=== PATIENT | male | born 1945 | race Caucasian/White ===

== ENCOUNTER → 2016-05-12 | Outpatient (CLI) | payer BC ==
[~2016-05-12] MED LIST: AMLODIPINE BESY10 MG PO; ASPIRIN ADULT L81 M3 PO; CELEXA 20MG20 MG/TA1 PO; ENALAPRIL20 MG; FINASTERIDE5 M1 PO; GOOD SENSE OMEP20 MG PO; LANTUS SOLOS100 U/ML; METFORMIN HYD1000 MG PO; NORCO 325 MG-51 TAB PO; NOVOLOG FLEX100 U/ML; SIMVASTATIN40 M1 PO
== END ==
LOC: LAB 08:22
DX: E11.9 Type 2 diabetes mellitus without complications (principal); I10 Essential (primary) hypertension; R80.9 Proteinuria, unspecified

== ENCOUNTER → 2016-08-16 | Outpatient (CLI) | payer BC ==
[2015-08-23 19:49] VITALS: BP 145/88
== END ==
LOC: LAB 08:14
DX: E11.9 Type 2 diabetes mellitus without complications (principal); E78.5 Hyperlipidemia, unspecified

== ENCOUNTER → 2016-11-15 | Outpatient (CLI) | payer BC ==
[2015-08-23 19:49] VITALS: BP 145/88
== END ==
LOC: LAB 10:01
DX: E11.9 Type 2 diabetes mellitus without complications (principal); E78.2 Mixed hyperlipidemia; R80.9 Proteinuria, unspecified; I10 Essential (primary) hypertension

== ENCOUNTER → 2017-02-15 | Outpatient (CLI) | payer BC ==
[2015-08-23 19:49] VITALS: BP 145/88
[2017-02-15 10:16] LABS: ALBUMIN 4.2 g/dL (3.5-5.0); DIRECT BILIRUBIN 0.3 mg/dL (0.0-0.4); TOTAL BILIRUBIN 0.7 mg/dL (0.2-1.3); TOTAL PROTEIN 7.1 g/dL (6.3-8.2)
== END ==
LOC: LAB 09:09
PROVIDERS: Nurse Practitioner Family
DX: E11.9 Type 2 diabetes mellitus without complications (principal); E78.2 Mixed hyperlipidemia

== ENCOUNTER 2017-03-24 09:45 | Emergency (ER) | payer MEDICARE, BC ==
[~2017-03-24] VITALS: Ht 188 cm; Wt 113.6 kg
[2017-03-24] MEDS ORDERED: HYGROTON 2525 MG/TAB PO (10:10)
[2017-03-24 10:43] LABS: HEMATOCRIT 46.2 % (42.0-52.0); HEMOGLOBIN 15.1 g/dL (13.5-18.0); MEAN CELL VOLUME 90 fl (78-100); MEAN CORPUSCULAR HEMOGLOBIN 30 pg (27-31); MEAN CORPUSCULAR HGB CONC 33 g/dL (33-37); PLATELET COUNT 261 K/mm3 (130-400); RED BLOOD COUNT 5.11 M/mm3 (4.20-5.60); RED CELL DISTRIBUTION WIDTH 13.6 % (11.5-14.5); WHITE BLOOD COUNT 10.8 K/mm3 (4.8-10.8)
[2017-03-24 10:51] LABS: ALBUMIN 4.2 g/dL (3.5-5.0); BUN/CREATININE RATIO 25.6 (6.0-26.0); CALCIUM 9.2 mg/dL (8.4-10.2); POTASSIUM 4.4 mmol/L (3.6-5.0); TOTAL BILIRUBIN 0.8 mg/dL (0.2-1.3); TOTAL PROTEIN 7.2 g/dL (6.3-8.2)
[2017-03-24 10:53] LABS: LYMPHOCYTE 15 % (20-51); MONOCYTE 13 % (3-10); NEUTROPHILS 70 % (42-75)
[2017-03-24 11:50] LABS: URINE APPEARANCE CLEAR; URINE BILIRUBIN NEGATIVE (NEGATIVE); URINE BLOOD NEGATIVE (NEGATIVE); URINE COLOR YELLOW; URINE GLUCOSE NEGATIVE (NEGATIVE); URINE KETONE NEGATIVE (NEGATIVE); URINE LEUKOCYTE ESTERASE NEGATIVE (NEGATIVE); URINE MUCUS PRESENT (NOT PRESENT); URINE NITRATE NEGATIVE (NEGATIVE); URINE PROTEIN(semi-quant) 2+ mg/dL (NEGATIVE); URINE UROBILINOGEN NORMAL (NORMAL); URINE WBC 0-1 /hpf (0-3)
[2017-03-24] MEDS ORDERED: CYCLOBENZ5 MG PO (12:06)
[2017-03-24 12:16] VITALS: BP 197/88
== END 2017-03-24 12:17 | disposition home or self-care (01) ==
LOC: ED 09:45
PROVIDERS: Physician Assistant
DX: M62.838 Other muscle spasm (principal); I10 Essential (primary) hypertension; E11.9 Type 2 diabetes mellitus without complications; Z88.0 Allergy status to penicillin; Z79.4 Long term (current) use of insulin; R80.9 Proteinuria, unspecified; W01.10XA Fall on same level from slipping, tripping and stumbling with subsequent striking against unspecified object, initial encounter; Z91.81 History of falling; Y92.008 Other place in unspecified non-institutional (private) residence as the place of occurrence of the external cause
CPT/HCPCS: L0150

== ENCOUNTER → 2017-03-28 | Day surgery (SDC) | payer BC ==
[2017-03-24 12:16] VITALS: BP 197/88
[~2017-03-28] MED LIST changes: +CYCLOBENZ5 MG PO; +HYGROTON 2525 MG/TAB PO
== END ==
LOC: MSO 09:09
DX: R19.5 Other fecal abnormalities (principal); D12.0 Benign neoplasm of cecum; E11.9 Type 2 diabetes mellitus without complications; Z79.4 Long term (current) use of insulin; I10 Essential (primary) hypertension; Z87.891 Personal history of nicotine dependence
CPT/HCPCS: 00810; J2704; J7030

== ENCOUNTER → 2017-05-17 | Outpatient (CLI) | payer BC ==
[2017-05-17 11:05] LABS: EOS # 0.2 (0.04-0.40); EOS % 2.6 % (0.0-4.0); HEMOGLOBIN 15.4 g/dL (13.5-18.0); LYMPH# 2.5 (1.50-4.00); MEAN CELL VOLUME 89 fl (78-100); MEAN CORPUSCULAR HEMOGLOBIN 29 pg (27-31); MEAN CORPUSCULAR HGB CONC 32 g/dL (33-37); MEAN PLATELET VOLUME 9.9 fl (7.4-10.4); MONO # 0.7 (0.20-0.80); PLATELET COUNT 273 K/mm3 (130-400); RED CELL DISTRIBUTION WIDTH 13.8 % (11.5-14.5); WHITE BLOOD COUNT 6.5 K/mm3 (4.8-10.8)
[2017-05-17 11:20] LABS: BUN/CREATININE RATIO 23.4 (6.0-26.0); CALCIUM 9.2 mg/dL (8.4-10.2); POTASSIUM 5.1 mmol/L (3.6-5.0)
== END ==
LOC: LAB 10:42
PROVIDERS: Internal Medicine
DX: R80.9 Proteinuria, unspecified (principal); I10 Essential (primary) hypertension; E11.9 Type 2 diabetes mellitus without complications

== ENCOUNTER → 2017-08-23 | Outpatient (CLI) | payer BC ==
[2017-08-23 08:38] LABS: BUN/CREATININE RATIO 28.6 (6.0-26.0); CALCIUM 9.4 mg/dL (8.4-10.2); POTASSIUM 4.9 mmol/L (3.6-5.0)
[2017-08-23 08:43] LABS: BASO # 0.1 (0.02-0.10); EOS # 0.3 (0.04-0.40); EOS % 2.9 % (0.0-4.0); HEMATOCRIT 45.1 % (42.0-52.0); HEMOGLOBIN 14.7 g/dL (13.5-18.0); MEAN CELL VOLUME 91 fl (78-100); MEAN CORPUSCULAR HEMOGLOBIN 30 pg (27-31); MEAN CORPUSCULAR HGB CONC 33 g/dL (33-37); MEAN PLATELET VOLUME 10.4 fl (7.4-10.4); MONO # 0.7 (0.20-0.80); NEU # 4.7 (1.40-6.50); PLATELET COUNT 275 K/mm3 (130-400); RED BLOOD COUNT 4.98 M/mm3 (4.20-5.60); RED CELL DISTRIBUTION WIDTH 14.2 % (11.5-14.5); WHITE BLOOD COUNT 8.7 K/mm3 (4.8-10.8)
== END ==
LOC: LAB 08:07
PROVIDERS: Nurse Practitioner Family
DX: N18.2 Chronic kidney disease, stage 2 (mild) (principal); I10 Essential (primary) hypertension; E11.9 Type 2 diabetes mellitus without complications; Z88.0 Allergy status to penicillin

== ENCOUNTER → 2017-08-25 | Outpatient (CLI) | payer MEDICARE ==
[2017-08-25 12:21] LABS: PH-URINE 5.5 (5.0 - 8.0); URINE APPEARANCE CLEAR; URINE COLOR YELLOW; URINE PROTEIN(semi-quant) 3+ mg/dL (NEGATIVE)
[2017-08-25 12:22] LABS: URINE BILIRUBIN NEGATIVE (NEGATIVE); URINE BLOOD TRACE (NEGATIVE); URINE GLUCOSE NEGATIVE (NEGATIVE); URINE KETONE NEGATIVE (NEGATIVE); URINE LEUKOCYTE ESTERASE NEGATIVE (NEGATIVE); URINE NITRATE NEGATIVE (NEGATIVE); URINE UROBILINOGEN NORMAL (NORMAL)
== END ==
LOC: LAB 11:30
PROVIDERS: Nurse Practitioner Family
DX: N41.0 Acute prostatitis (principal); Z88.0 Allergy status to penicillin

== ENCOUNTER → 2017-09-05 | Outpatient (CLI) | payer MEDICARE | LOC: RAD 08:48 | DX: N20.0 Calculus of kidney (principal); N28.1 Cyst of kidney, acquired | CPT/HCPCS: Q9967 ==

== ENCOUNTER 2017-11-18 16:42 | Emergency (ER) | payer MEDICARE ==
[~2017-11-18] VITALS: Ht 188 cm; Wt 116.5 kg
[2017-11-18 17:26] LABS: BASO # 0.1 (0.02-0.10); EOS # 0.4 (0.04-0.40); EOS % 3.7 % (0.0-4.0); HEMATOCRIT 43.4 % (42.0-52.0); HEMOGLOBIN 13.7 g/dL (13.5-18.0); MEAN CELL VOLUME 91 fl (78-100); MEAN CORPUSCULAR HEMOGLOBIN 29 pg (27-31); MEAN CORPUSCULAR HGB CONC 32 g/dL (33-37); MEAN PLATELET VOLUME 10.2 fl (7.4-10.4); NEU # 5.1 (1.40-6.50); PLATELET COUNT 431 K/mm3 (130-400); RED BLOOD COUNT 4.77 M/mm3 (4.20-5.60); RED CELL DISTRIBUTION WIDTH 14.2 % (11.5-14.5); WHITE BLOOD COUNT 9.6 K/mm3 (4.8-10.8)
[2017-11-18 17:28] LABS: ALBUMIN 4.4 g/dL (3.5-5.0); BUN/CREATININE RATIO 29.9 (6.0-26.0); CALCIUM 9.5 mg/dL (8.4-10.2); POTASSIUM 4.8 mmol/L (3.6-5.0); TOTAL BILIRUBIN 0.3 mg/dL (0.2-1.3); TOTAL PROTEIN 7.8 g/dL (6.3-8.2)
[2017-11-18 17:50] LABS: PARTIAL THROMBOPLASTIN TIME 23.7 SECONDS (21.0-32.0); PROTHROMBIN TIME 9.4 SECONDS (9.0-12.0)
[2017-11-18 19:08] VITALS: BP 166/113
== END 2017-11-18 18:43 | disposition short-term general hospital (02) ==
LOC: ED 16:42
PROVIDERS: Physician Assistant
DX: I21.3 ST elevation (STEMI) myocardial infarction of unspecified site (principal); E11.9 Type 2 diabetes mellitus without complications; Z79.4 Long term (current) use of insulin; I10 Essential (primary) hypertension; E78.5 Hyperlipidemia, unspecified; K21.9 Gastro-esophageal reflux disease without esophagitis; Z79.82 Long term (current) use of aspirin; Z79.899 Other long term (current) drug therapy; N40.0 Benign prostatic hyperplasia without lower urinary tract symptoms
CPT/HCPCS: J1644; J1815; J3101

== ENCOUNTER → 2017-11-18 | Outpatient (CLI) | payer MEDICARE | LOC: CARDREHAB 14:25 | DX: I20.9 Angina pectoris, unspecified (principal); I10 Essential (primary) hypertension; E11.9 Type 2 diabetes mellitus without complications ==

== ENCOUNTER 2017-12-19 15:15 | Outpatient (RCR) | payer MEDICARE ==
[2017-12-16 16:15] VITALS: BP 138/50
[~2017-12-19 15:15] MED LIST changes: +AMIODARONE200 MG PO; +ATORVASTATIN CA80 MG PO; -ENALAPRIL20 MG; +ENALAPRIL20 MG PO; +FUROSEMIDE40 MG PO; -LANTUS SOLOS100 U/ML; +LEVEMIR FLEX100 U/ML SQ; +METOPROLOL SUC100 M1 PO; -NOVOLOG FLEX100 U/ML; +NOVOLOG FLEX100 U/ML SQ; +OXYCODONE PO; +POTASSIUM CHLO10 ME5 PO
== END 2018-03-19 | disposition home or self-care (01) ==
LOC: CARDREHAB
DX: Z48.812 Encounter for surgical aftercare following surgery on the circulatory system (principal); Z95.1 Presence of aortocoronary bypass graft; I21.19 ST elevation (STEMI) myocardial infarction involving other coronary artery of inferior wall

== ENCOUNTER 2018-01-04 14:13 | Outpatient (RCR) | payer MEDICARE ==
[2017-12-16 16:15] VITALS: BP 138/50
[2017-12-19 16:00] VITALS: BP 131/80
[2017-12-21 16:06] VITALS: BP 147/71
[2017-12-23 15:45] VITALS: BP 128/69
[2017-12-26 15:55] VITALS: BP 149/81
[2017-12-28 15:34] VITALS: BP 139/77
[2017-12-30 16:14] VITALS: BP 117/60
[2018-01-02 16:01] VITALS: BP 117/74
[~2018-01-04] VITALS: Ht 188 cm; Wt 111.4 kg
[2018-01-04 15:00] VITALS: BP 127/63
== END 2018-01-04 20:22 | disposition home or self-care (01) ==
LOC: AMSURD 14:13
DX: T81.30XA Disruption of wound, unspecified, initial encounter (principal); M79.89 Other specified soft tissue disorders; Z48.00 Encounter for change or removal of nonsurgical wound dressing; N18.9 Chronic kidney disease, unspecified; D63.1 Anemia in chronic kidney disease; Z95.1 Presence of aortocoronary bypass graft; Z98.890 Other specified postprocedural states

== ENCOUNTER → 2018-01-24 | Outpatient (CLI) | payer MEDICARE ==
[2018-01-04 15:00] VITALS: BP 127/63
[2018-01-24 10:27] LABS: BASO # 0.1 (0.02-0.10); EOS # 0.3 (0.04-0.40); EOS % 3.8 % (0.0-4.0); HEMATOCRIT 40.5 % (42.0-52.0); HEMOGLOBIN 12.5 g/dL (13.5-18.0); LYMPH# 2.4 (1.50-4.00); MEAN CELL VOLUME 90 fl (78-100); MEAN CORPUSCULAR HEMOGLOBIN 28 pg (27-31); MEAN CORPUSCULAR HGB CONC 31 g/dL (33-37); MONO # 1.1 (0.20-0.80); NEU # 5.1 (1.40-6.50); PLATELET COUNT 314 K/mm3 (130-400); RED CELL DISTRIBUTION WIDTH 14.9 % (11.5-14.5)
[2018-01-24 10:31] LABS: CALCIUM 9.1 mg/dL (8.4-10.2); POTASSIUM 4.5 mmol/L (3.6-5.0)
== END ==
LOC: LAB 10:03
PROVIDERS: Internal Medicine
DX: N18.2 Chronic kidney disease, stage 2 (mild) (principal); R80.8 Other proteinuria

== ENCOUNTER → 2018-02-08 | Outpatient (CLI) | payer MEDICARE ==
[2018-02-08 10:29] LABS: BASO # 0.1 (0.02-0.10); EOS # 0.2 (0.04-0.40); EOS % 2.7 % (0.0-4.0); HEMATOCRIT 45.4 % (42.0-52.0); HEMOGLOBIN 13.9 g/dL (13.5-18.0); LYMPH# 2.1 (1.50-4.00); MEAN CELL VOLUME 89 fl (78-100); MEAN CORPUSCULAR HEMOGLOBIN 27 pg (27-31); MEAN CORPUSCULAR HGB CONC 31 g/dL (33-37); MONO # 0.8 (0.20-0.80); NEU # 4.5 (1.40-6.50); PLATELET COUNT 290 K/mm3 (130-400); RED BLOOD COUNT 5.13 M/mm3 (4.20-5.60); RED CELL DISTRIBUTION WIDTH 15.1 % (11.5-14.5); WHITE BLOOD COUNT 7.8 K/mm3 (4.8-10.8)
[2018-02-08 10:39] LABS: ALBUMIN 4.2 g/dL (3.5-5.0); CALCIUM 9.8 mg/dL (8.4-10.2); POTASSIUM 4.3 mmol/L (3.6-5.0); TOTAL BILIRUBIN 0.4 mg/dL (0.2-1.3); TOTAL PROTEIN 7.1 g/dL (6.3-8.2)
== END ==
LOC: LAB 10:03
PROVIDERS: Family Medicine
DX: I12.9 Hypertensive chronic kidney disease with stage 1 through stage 4 chronic kidney disease, or unspecified chronic kidney disease (principal); E11.22 Type 2 diabetes mellitus with diabetic chronic kidney disease; N18.2 Chronic kidney disease, stage 2 (mild); E11.21 Type 2 diabetes mellitus with diabetic nephropathy; E78.2 Mixed hyperlipidemia

== ENCOUNTER 2018-03-20 10:00 | Outpatient (RCR) | payer MEDICARE | END 2018-03-20 14:00 | disposition home or self-care (01) | LOC: CARDREHAB 10:00 | DX: Z48.812 Encounter for surgical aftercare following surgery on the circulatory system (principal); Z95.1 Presence of aortocoronary bypass graft; I25.2 Old myocardial infarction ==

== ENCOUNTER → 2018-05-03 | Outpatient (CLI) | payer MEDICARE | LOC: LAB 09:17 | DX: E11.9 Type 2 diabetes mellitus without complications (principal) ==

== ENCOUNTER → 2018-07-24 | Outpatient (CLI) | payer MEDICARE ==
[2018-07-24 14:34] LABS: CALCIUM 9.6 mg/dL (8.4-10.2); POTASSIUM 4.7 mmol/L (3.6-5.0)
[2018-07-24 23:40] LABS: HEMOGLOBIN 14.7 g/dL (13.5-18.0)
== END ==
LOC: LAB 08:24
PROVIDERS: Family Medicine
DX: E11.22 Type 2 diabetes mellitus with diabetic chronic kidney disease (principal); I12.9 Hypertensive chronic kidney disease with stage 1 through stage 4 chronic kidney disease, or unspecified chronic kidney disease; N18.2 Chronic kidney disease, stage 2 (mild)

== ENCOUNTER → 2018-08-22 | Outpatient (CLI) | payer MEDICARE | LOC: LAB 08-21 15:57 | DX: R19.7 Diarrhea, unspecified (principal) ==

== ENCOUNTER → 2018-08-24 | Outpatient (CLI) | payer MEDICARE | LOC: LAB 07:41 | DX: R19.7 Diarrhea, unspecified (principal); M54.5 Low back pain; G89.29 Other chronic pain; I25.10 Atherosclerotic heart disease of native coronary artery without angina pectoris ==

== ENCOUNTER → 2018-11-06 | Outpatient (CLI) | payer MEDICARE ==
[~2018-11-06] VITALS: Ht 188 cm; Wt 111.4 kg
[2018-11-06 17:52] VITALS: BP 128/89
== END ==
LOC: ED 17:28 → EDSTATUS 17:32 → AMSURD 17:33
DX: E11.9 Type 2 diabetes mellitus without complications (principal); Z79.4 Long term (current) use of insulin
CPT/HCPCS: J1815

== ENCOUNTER → 2019-02-01 | Outpatient (CLI) | payer MEDICARE ==
[2018-11-06 17:52] VITALS: BP 128/89
[2019-02-01 08:42] LABS: HEMATOCRIT 45.9 % (42.0-52.0); MEAN PLATELET VOLUME 10.5 fl (7.4-10.4); RED BLOOD COUNT 5.11 M/mm3 (4.20-5.60); RED CELL DISTRIBUTION WIDTH 13.3 % (11.5-14.5); WHITE BLOOD COUNT 7.6 K/mm3 (4.8-10.8)
[2019-02-01 08:59] LABS: POTASSIUM 4.6 mmol/L (3.5-5.1)
[2019-02-01 09:00] LABS: CALCIUM 9.2 mg/dL (8.3-10.5)
== END ==
LOC: LAB 08:27
PROVIDERS: Internal Medicine Nephrology
DX: I12.9 Hypertensive chronic kidney disease with stage 1 through stage 4 chronic kidney disease, or unspecified chronic kidney disease (principal); N18.2 Chronic kidney disease, stage 2 (mild); E11.22 Type 2 diabetes mellitus with diabetic chronic kidney disease

== ENCOUNTER → 2019-03-06 | Outpatient (CLI) | payer MEDICARE ==
[2018-11-06 17:52] VITALS: BP 128/89
[2019-03-06 10:51] LABS: BASO # 0.1 (0.02-0.10); EOS # 0.3 (0.04-0.40); EOS % 2.9 % (0.0-4.0); HEMATOCRIT 48.9 % (42.0-52.0); HEMOGLOBIN 15.9 g/dL (13.5-18.0); LYMPH# 3.1 (1.50-4.00); MEAN CELL VOLUME 88 fl (78-100); MEAN CORPUSCULAR HEMOGLOBIN 29 pg (27-31); MEAN CORPUSCULAR HGB CONC 33 g/dL (33-37); MEAN PLATELET VOLUME 10.6 fl (7.4-10.4); MONO # 0.9 (0.20-0.80); NEU # 4.4 (1.40-6.50); PLATELET COUNT 272 K/mm3 (130-400); RED BLOOD COUNT 5.55 M/mm3 (4.20-5.60); RED CELL DISTRIBUTION WIDTH 13.2 % (11.5-14.5); WHITE BLOOD COUNT 8.7 K/mm3 (4.8-10.8)
[2019-03-06 11:00] LABS: ALBUMIN 4.1 g/dL (3.4-4.8); POTASSIUM 4.5 mmol/L (3.5-5.1)
[2019-03-06 11:02] LABS: TOTAL PROTEIN 7.2 g/dL (6.2-8.1)
[2019-03-06 11:04] LABS: TOTAL BILIRUBIN 0.6 mg/dL (0.2-1.2)
== END ==
LOC: LAB 10:37
PROVIDERS: Family Medicine
DX: I10 Essential (primary) hypertension (principal); E11.9 Type 2 diabetes mellitus without complications; E78.2 Mixed hyperlipidemia

== ENCOUNTER → 2019-06-01 | Outpatient (CLI) | payer MEDICARE ==
[2018-11-06 17:52] VITALS: BP 128/89
[2019-06-01 09:45] LABS: BASO # 0.1 (0.02-0.10); EOS # 0.2 (0.04-0.40); EOS % 3.1 % (0.0-4.0); HEMATOCRIT 47.6 % (42.0-52.0); HEMOGLOBIN 15.5 g/dL (13.5-18.0); LYMPH# 2.4 (1.50-4.00); MEAN CELL VOLUME 90 fl (78-100); MEAN CORPUSCULAR HEMOGLOBIN 29 pg (27-31); MEAN CORPUSCULAR HGB CONC 33 g/dL (33-37); MEAN PLATELET VOLUME 10.7 fl (7.4-10.4); MONO # 0.8 (0.20-0.80); NEU # 4.2 (1.40-6.50); PLATELET COUNT 225 K/mm3 (130-400); RED BLOOD COUNT 5.32 M/mm3 (4.20-5.60); RED CELL DISTRIBUTION WIDTH 13.6 % (11.5-14.5); WHITE BLOOD COUNT 7.7 K/mm3 (4.8-10.8)
[2019-06-01 09:53] LABS: ALBUMIN 4.3 g/dL (3.4-4.8)
[2019-06-01 09:54] LABS: POTASSIUM 4.5 mmol/L (3.5-5.1)
[2019-06-01 09:55] LABS: CALCIUM 9.7 mg/dL (8.3-10.5)
[2019-06-01 09:58] LABS: TOTAL BILIRUBIN 0.6 mg/dL (0.2-1.2)
== END ==
LOC: LAB 09:29
PROVIDERS: Family Medicine
DX: E78.2 Mixed hyperlipidemia (principal); E11.9 Type 2 diabetes mellitus without complications; I10 Essential (primary) hypertension

== ENCOUNTER 2019-07-25 14:09 | Emergency (ER) | payer MEDICARE ==
[~2019-07-25] VITALS: Ht 188 cm; Wt 102.3 kg
[2019-07-25] MEDS ORDERED: METFORMIN HYD1000 MG PO (14:55)
[2019-07-25] MEDS ORDERED: CEPHALEXIN500 M2 PO (15:01)
[2019-07-25 15:12] VITALS: BP 139/89
== END 2019-07-25 15:20 | disposition home or self-care (01) ==
LOC: ED 14:09
DX: S51.811A Laceration without foreign body of right forearm, initial encounter (principal); I10 Essential (primary) hypertension; E11.9 Type 2 diabetes mellitus without complications; I25.10 Atherosclerotic heart disease of native coronary artery without angina pectoris; Z79.82 Long term (current) use of aspirin; Z79.4 Long term (current) use of insulin; Z95.5 Presence of coronary angioplasty implant and graft; Z88.0 Allergy status to penicillin; W26.8XXA Contact with other sharp object(s), not elsewhere classified, initial encounter; Y92.009 Unspecified place in unspecified non-institutional (private) residence as the place of occurrence of the external cause

== ENCOUNTER → 2019-08-01 | Outpatient (CLI) | payer MEDICARE ==
[2019-07-25 15:12] VITALS: BP 139/89
[~2019-08-01] MED LIST changes: +CEPHALEXIN500 M2 PO
== END ==
LOC: AMSURD 10:22
DX: Z48.02 Encounter for removal of sutures (principal)

== ENCOUNTER → 2019-10-05 | Outpatient (CLI) | payer MEDICARE ==
[2019-10-05 08:39] LABS: POTASSIUM 4.6 mmol/L (3.5-5.1)
[2019-10-05 08:40] LABS: CALCIUM 8.9 mg/dL (8.3-10.5)
== END ==
LOC: LAB 07:44
PROVIDERS: Internal Medicine Nephrology
DX: I12.9 Hypertensive chronic kidney disease with stage 1 through stage 4 chronic kidney disease, or unspecified chronic kidney disease (principal); E11.22 Type 2 diabetes mellitus with diabetic chronic kidney disease; N18.2 Chronic kidney disease, stage 2 (mild)

== ENCOUNTER → 2019-10-29 | Outpatient (CLI) | payer MEDICARE ==
[2019-10-29 10:39] LABS: BASO # 0.1 (0.02-0.10); EOS # 0.2 (0.04-0.40); EOS % 2.9 % (0.0-4.0); HEMATOCRIT 46.2 % (42.0-52.0); HEMOGLOBIN 15.5 g/dL (13.5-18.0); LYMPH# 2.3 (1.50-4.00); MEAN CELL VOLUME 88 fl (78-100); MEAN CORPUSCULAR HEMOGLOBIN 30 pg (27-31); MEAN CORPUSCULAR HGB CONC 34 g/dL (33-37); MEAN PLATELET VOLUME 10.5 fl (7.4-10.4); MONO # 0.8 (0.20-0.80); NEU # 4.4 (1.40-6.50); PLATELET COUNT 259 K/mm3 (130-400); RED BLOOD COUNT 5.24 M/mm3 (4.20-5.60); RED CELL DISTRIBUTION WIDTH 13.5 % (11.5-14.5); WHITE BLOOD COUNT 7.9 K/mm3 (4.8-10.8)
[2019-10-29 11:06] LABS: ALBUMIN 4.2 g/dL (3.4-4.8); POTASSIUM 4.2 mmol/L (3.5-5.1)
[2019-10-29 11:07] LABS: CALCIUM 9.6 mg/dL (8.3-10.5)
[2019-10-29 11:08] LABS: TOTAL PROTEIN 7.1 g/dL (6.2-8.1)
== END ==
LOC: LAB 10:27
PROVIDERS: Family Medicine
DX: E11.9 Type 2 diabetes mellitus without complications (principal); E78.2 Mixed hyperlipidemia; I10 Essential (primary) hypertension

== ENCOUNTER → 2020-01-28 | Outpatient (CLI) | payer MEDICARE ==
[2020-01-28 10:43] LABS: ALBUMIN 4.2 g/dL (3.4-4.8); POTASSIUM 4.7 mmol/L (3.5-5.1)
[2020-01-28 10:44] LABS: CALCIUM 9.3 mg/dL (8.3-10.5)
[2020-01-28 10:48] LABS: TOTAL BILIRUBIN 0.6 mg/dL (0.2-1.2)
== END ==
LOC: LAB 10:13
PROVIDERS: Family Medicine
DX: E11.9 Type 2 diabetes mellitus without complications (principal); E78.2 Mixed hyperlipidemia; I10 Essential (primary) hypertension

== ENCOUNTER → 2020-05-09 | Outpatient (CLI) | payer MEDICARE | LOC: LAB 11:16 | DX: E11.9 Type 2 diabetes mellitus without complications (principal) ==

== ENCOUNTER → 2020-06-04 | Outpatient (CLI) | payer MEDICARE ==
[2020-06-04 13:43] LABS: POTASSIUM 4.7 mmol/L (3.5-5.1)
== END ==
LOC: LAB 13:08
PROVIDERS: Neurological Surgery
DX: E11.22 Type 2 diabetes mellitus with diabetic chronic kidney disease (principal); I12.9 Hypertensive chronic kidney disease with stage 1 through stage 4 chronic kidney disease, or unspecified chronic kidney disease; N18.2 Chronic kidney disease, stage 2 (mild); E11.21 Type 2 diabetes mellitus with diabetic nephropathy

== ENCOUNTER → 2020-08-06 | Outpatient (CLI) | payer MEDICARE | LOC: LAB 09:54 | DX: E11.9 Type 2 diabetes mellitus without complications (principal) ==

== ENCOUNTER → 2020-11-07 | Outpatient (CLI) | payer MEDICARE ==
[2020-11-07 10:41] LABS: BASO # 0.09 (0.02-0.10); EOS % 4.3 % (0.0-4.0); HEMATOCRIT 43.2 % (42.0-52.0); HEMOGLOBIN 14.4 g/dL (13.5-18.0); LYMPH# 2.48 (1.50-4.00); MEAN CELL VOLUME 89 fl (78-100); MEAN CORPUSCULAR HEMOGLOBIN 30 pg (27-31); MEAN CORPUSCULAR HGB CONC 33 g/dL (33-37); MEAN PLATELET VOLUME 10.5 fl (7.4-10.4); MONO # 0.95 (0.20-0.80); NEU # 5.41 (1.40-6.50); PLATELET COUNT 232 K/mm3 (130-400); RED BLOOD COUNT 4.84 M/mm3 (4.20-5.60); RED CELL DISTRIBUTION WIDTH 13.2 % (11.5-14.5); WHITE BLOOD COUNT 9.4 K/mm3 (4.8-10.8)
[2020-11-07 10:44] LABS: ALBUMIN 4.1 g/dL (3.4-4.8)
[2020-11-07 10:45] LABS: CALCIUM 8.8 mg/dL (8.3-10.5)
[2020-11-07 10:48] LABS: TOTAL BILIRUBIN 0.9 mg/dL (0.2-1.2)
[2020-11-07 11:06] LABS: URINE APPEARANCE CLEAR; URINE BILIRUBIN NEGATIVE (NEGATIVE); URINE BLOOD NEGATIVE (NEGATIVE); URINE COLOR YELLOW; URINE GLUCOSE NEGATIVE (NEGATIVE); URINE KETONE NEGATIVE (NEGATIVE); URINE LEUKOCYTE ESTERASE NEGATIVE (NEGATIVE); URINE NITRATE NEGATIVE (NEGATIVE); URINE PROTEIN(semi-quant) TRACE mg/dL (NEGATIVE); URINE UROBILINOGEN NORMAL (NORMAL); URINE WBC 0-1 /hpf (0-3)
== END ==
LOC: LAB 09:52
PROVIDERS: Family Medicine
DX: Z00.00 Encounter for general adult medical examination without abnormal findings (principal); E11.9 Type 2 diabetes mellitus without complications; R30.9 Painful micturition, unspecified; E78.5 Hyperlipidemia, unspecified

== ENCOUNTER → 2020-11-19 | Outpatient (CLI) | payer MEDICARE | LOC: RAD 08:13 | DX: N28.1 Cyst of kidney, acquired (principal); Q61.2 Polycystic kidney, adult type ==

== ENCOUNTER → 2021-02-16 | Outpatient (CLI) | payer MEDICARE ==
[2021-02-16 11:09] LABS: BASO # 0.06 K/mm3 (0.02-0.10); EOS # 0.26 K/mm3 (0.04-0.40); EOS % 3.1 % (0.0-4.0); HEMATOCRIT 43.7 % (42.0-52.0); HEMOGLOBIN 14.1 g/dL (13.5-18.0); LYMPH# 2.67 K/mm3 (1.50-4.00); MEAN CELL VOLUME 92 fl (78-100); MEAN CORPUSCULAR HEMOGLOBIN 30 pg (27-31); MEAN CORPUSCULAR HGB CONC 32 g/dL (33-37); MONO # 0.82 K/mm3 (0.20-0.80); NEU # 4.51 K/mm3 (1.40-6.50); PLATELET COUNT 243 K/mm3 (130-400); RED BLOOD COUNT 4.75 M/mm3 (4.20-5.60); RED CELL DISTRIBUTION WIDTH 12.8 % (11.5-14.5); WHITE BLOOD COUNT 8.3 K/mm3 (4.8-10.8)
[2021-02-16 11:38] LABS: ALBUMIN 3.9 g/dL (3.4-4.8); POTASSIUM 4.7 mmol/L (3.5-5.1)
[2021-02-16 11:39] LABS: CALCIUM 9.5 mg/dL (8.3-10.5)
[2021-02-16 11:40] LABS: TOTAL PROTEIN 6.6 g/dL (6.2-8.1)
[2021-02-16 11:42] LABS: TOTAL BILIRUBIN 0.6 mg/dL (0.2-1.2)
== END ==
LOC: LAB 10:33
PROVIDERS: Family Medicine
DX: E11.9 Type 2 diabetes mellitus without complications (principal)

== ENCOUNTER → 2021-06-17 | Outpatient (CLI) | payer MEDICARE ==
[2021-06-17 09:32] LABS: POTASSIUM 4.6 mmol/L (3.5-5.1)
[2021-06-17 09:33] LABS: CALCIUM 9.3 mg/dL (8.3-10.5)
== END ==
LOC: LAB 08:55
PROVIDERS: Internal Medicine Nephrology
DX: I12.9 Hypertensive chronic kidney disease with stage 1 through stage 4 chronic kidney disease, or unspecified chronic kidney disease (principal); E11.22 Type 2 diabetes mellitus with diabetic chronic kidney disease; E11.21 Type 2 diabetes mellitus with diabetic nephropathy; N18.2 Chronic kidney disease, stage 2 (mild)

== ENCOUNTER → 2021-07-01 | Outpatient (CLI) | payer MEDICARE | LOC: LAB 09:40 | DX: M17.12 Unilateral primary osteoarthritis, left knee (principal); E11.9 Type 2 diabetes mellitus without complications; E66.9 Obesity, unspecified; E78.2 Mixed hyperlipidemia; I10 Essential (primary) hypertension; N28.1 Cyst of kidney, acquired; I25.10 Atherosclerotic heart disease of native coronary artery without angina pectoris ==

== ENCOUNTER → 2021-09-30 | Outpatient (CLI) | payer MEDICARE ==
[2021-09-30 10:27] LABS: EOS # 0.52 K/mm3 (0.04-0.40); EOS % 4.6 % (0.0-4.0); HEMATOCRIT 46.7 % (42.0-52.0); LYMPH# 3.24 K/mm3 (1.50-4.00); MEAN CELL VOLUME 91 fl (78-100); MEAN CORPUSCULAR HEMOGLOBIN 29 pg (27-31); MEAN CORPUSCULAR HGB CONC 32 g/dL (33-37); MONO # 1.08 K/mm3 (0.20-0.80); PLATELET COUNT 264 K/mm3 (130-400); RED BLOOD COUNT 5.11 M/mm3 (4.20-5.60); RED CELL DISTRIBUTION WIDTH 13.1 % (11.5-14.5); WHITE BLOOD COUNT 11.3 K/mm3 (4.8-10.8)
[2021-09-30 10:35] LABS: ALBUMIN 4.2 g/dL (3.4-4.8)
[2021-09-30 10:36] LABS: CALCIUM 9.8 mg/dL (8.3-10.5)
[2021-09-30 10:37] LABS: TOTAL PROTEIN 7.1 g/dL (6.2-8.1)
[2021-09-30 10:39] LABS: TOTAL BILIRUBIN 0.8 mg/dL (0.2-1.2)
== END ==
LOC: LAB 10:05
PROVIDERS: Family Medicine
DX: N28.1 Cyst of kidney, acquired (principal); I10 Essential (primary) hypertension; E11.9 Type 2 diabetes mellitus without complications; E78.2 Mixed hyperlipidemia; I25.10 Atherosclerotic heart disease of native coronary artery without angina pectoris; E66.9 Obesity, unspecified; Z72.0 Tobacco use

== ENCOUNTER → 2021-11-11 | Outpatient (CLI) | payer MEDICARE | LOC: RAD 08:46 | DX: M17.12 Unilateral primary osteoarthritis, left knee (principal) ==

== ENCOUNTER 2022-01-03 07:39 | Emergency (ER) | payer MEDICARE ==
[2022-01-03] MEDS ORDERED: JANUVIA 100MG100 MG (07:53)
[2022-01-03] MEDS ORDERED: EZETIMIBE10 M1 PO (07:54)
[2022-01-03] MEDS ORDERED: FLOMAX0.4 MG PO ×2 (07:55→10:00)
[2022-01-03 08:36] LABS: URINE APPEARANCE CLEAR; URINE BILIRUBIN NEGATIVE (NEGATIVE); URINE BLOOD 250 ery/uL (NEGATIVE); URINE COLOR YELLOW; URINE KETONE NEGATIVE (NEGATIVE); URINE LEUKOCYTE ESTERASE NEGATIVE (NEGATIVE); URINE NITRATE NEGATIVE (NEGATIVE); URINE PROTEIN(semi-quant) 2+ (NEGATIVE); URINE UROBILINOGEN NORMAL (NORMAL)
[2022-01-03 10:08] VITALS: BP 194/104
== END 2022-01-03 10:07 | disposition home or self-care (01) ==
LOC: ED 07:39
PROVIDERS: Nurse Practitioner Family
DX: N13.2 Hydronephrosis with renal and ureteral calculous obstruction (principal); Z90.49 Acquired absence of other specified parts of digestive tract; Z28.310 Unvaccinated for COVID-19
CPT/HCPCS: J1885

== ENCOUNTER → 2022-01-15 | Outpatient (CLI) | payer MEDICARE ==
[~2022-01-15] MED LIST changes: +EZETIMIBE10 M1 PO; +FLOMAX0.4 MG PO; +JANUVIA 100MG100 MG
== END ==
LOC: CARDREHAB 08:03
DX: Z01.818 Encounter for other preprocedural examination (principal); I25.119 Atherosclerotic heart disease of native coronary artery with unspecified angina pectoris; I25.5 Ischemic cardiomyopathy; I10 Essential (primary) hypertension
CPT/HCPCS: A9500; J2785

== ENCOUNTER → 2022-01-18 | Outpatient (CLI) | payer MEDICARE ==
[2022-01-18 11:13] LABS: ALBUMIN 3.9 g/dL (3.4-4.8); BASO # 0.08 K/mm3 (0.02-0.10); EOS # 0.49 K/mm3 (0.04-0.40); EOS % 5.7 % (0.0-4.0); HEMATOCRIT 40.9 % (42.0-52.0); HEMOGLOBIN 13.5 g/dL (13.5-18.0); LYMPH# 2.25 K/mm3 (1.50-4.00); MEAN CELL VOLUME 91 fl (78-100); MEAN CORPUSCULAR HEMOGLOBIN 30 pg (27-31); MEAN CORPUSCULAR HGB CONC 33 g/dL (33-37); MEAN PLATELET VOLUME 10.5 fl (7.4-10.4); MONO # 0.89 K/mm3 (0.20-0.80); NEU # 4.78 K/mm3 (1.40-6.50); PLATELET COUNT 235 K/mm3 (130-400); POTASSIUM 4.6 mmol/L (3.5-5.1); RED BLOOD COUNT 4.51 M/mm3 (4.20-5.60); RED CELL DISTRIBUTION WIDTH 13.2 % (11.5-14.5); WHITE BLOOD COUNT 8.6 K/mm3 (4.8-10.8)
[2022-01-18 11:14] LABS: CALCIUM 9.2 mg/dL (8.3-10.5)
[2022-01-18 11:15] LABS: TOTAL PROTEIN 6.5 g/dL (6.2-8.1)
[2022-01-18 11:17] LABS: TOTAL BILIRUBIN 0.5 mg/dL (0.2-1.2)
[2022-01-18 11:38] LABS: PROTHROMBIN TIME 9.9 SECONDS (9.0-12.0)
[2022-01-18 11:49] LABS: URINE APPEARANCE CLEAR; URINE BILIRUBIN NEGATIVE (NEGATIVE); URINE BLOOD TRACE (NEGATIVE); URINE COLOR YELLOW; URINE GLUCOSE 50 mg/dL (NEGATIVE); URINE KETONE NEGATIVE (NEGATIVE); URINE LEUKOCYTE ESTERASE NEGATIVE (NEGATIVE); URINE NITRATE NEGATIVE (NEGATIVE); URINE PROTEIN(semi-quant) 2+ (NEGATIVE); URINE UROBILINOGEN NORMAL (NORMAL)
== END ==
LOC: LAB 10:20
PROVIDERS: Family Medicine
DX: Z01.89 Encounter for other specified special examinations (principal); I25.10 Atherosclerotic heart disease of native coronary artery without angina pectoris; N28.1 Cyst of kidney, acquired; I10 Essential (primary) hypertension; E11.9 Type 2 diabetes mellitus without complications; E78.2 Mixed hyperlipidemia; E66.9 Obesity, unspecified; Z72.0 Tobacco use

== ENCOUNTER 2022-01-25 12:06 | Emergency (ER) | payer MEDICARE ==
[2022-01-25 12:10] VITALS: BP 147/92
[2022-01-25 12:59] LABS: BASO # 0.08 K/mm3 (0.02-0.10); EOS # 0.33 K/mm3 (0.04-0.40); EOS % 2.9 % (0.0-4.0); HEMATOCRIT 43.8 % (42.0-52.0); LYMPH# 1.31 K/mm3 (1.50-4.00); MEAN CELL VOLUME 93 fl (78-100); MEAN CORPUSCULAR HEMOGLOBIN 30 pg (27-31); MEAN CORPUSCULAR HGB CONC 32 g/dL (33-37); MEAN PLATELET VOLUME 10.1 fl (7.4-10.4); MONO # 1.01 K/mm3 (0.20-0.80); PLATELET COUNT 255 K/mm3 (130-400); RED BLOOD COUNT 4.71 M/mm3 (4.20-5.60); RED CELL DISTRIBUTION WIDTH 13.6 % (11.5-14.5); WHITE BLOOD COUNT 11.3 K/mm3 (4.8-10.8)
[2022-01-25 13:06] LABS: POTASSIUM 4.7 mmol/L (3.5-5.1)
[2022-01-25 13:07] LABS: CALCIUM 9.4 mg/dL (8.3-10.5)
[2022-01-25 13:08] LABS: TOTAL PROTEIN 6.5 g/dL (6.2-8.1)
[2022-01-25 13:10] LABS: TOTAL BILIRUBIN 0.5 mg/dL (0.2-1.2)
[2022-01-25 14:17] LABS: URINE APPEARANCE CLEAR; URINE COLOR YELLOW
[2022-01-25 14:22] LABS: URINE BILIRUBIN NEGATIVE (NEGATIVE); URINE BLOOD NEGATIVE (NEGATIVE); URINE GLUCOSE NEGATIVE (NEGATIVE); URINE KETONE NEGATIVE (NEGATIVE); URINE LEUKOCYTE ESTERASE NEGATIVE (NEGATIVE); URINE MUCUS PRESENT (NOT PRESENT); URINE NITRATE NEGATIVE (NEGATIVE); URINE PROTEIN(semi-quant) 1+ (NEGATIVE); URINE UROBILINOGEN NORMAL (NORMAL); URINE WBC 0-1 /hpf (0-3)
== END 2022-01-25 14:29 | disposition home or self-care (01) ==
LOC: ED 12:06
PROVIDERS: Nurse Practitioner
DX: E11.649 Type 2 diabetes mellitus with hypoglycemia without coma (principal)

== ENCOUNTER → 2023-02-23 | Outpatient (CLI) | payer MEDICARE ==
[2023-02-23 11:00] LABS: ALBUMIN 3.9 g/dL (3.4-4.8)
[2023-02-23 11:02] LABS: CALCIUM 9.4 mg/dL (8.3-10.5)
[2023-02-23 11:03] LABS: TOTAL PROTEIN 6.6 g/dL (6.2-8.1)
[2023-02-23 11:05] LABS: TOTAL BILIRUBIN 0.7 mg/dL (0.2-1.2)
== END ==
LOC: LAB 10:28
PROVIDERS: Nurse Practitioner
DX: E11.9 Type 2 diabetes mellitus without complications (principal)

== ENCOUNTER → 2023-05-18 | Outpatient (CLI) | payer MEDICARE ==
[2023-05-18 11:43] LABS: ALBUMIN 4.2 g/dL (3.4-4.8)
[2023-05-18 11:44] LABS: CALCIUM 9.8 mg/dL (8.3-10.5)
[2023-05-18 11:47] LABS: TOTAL BILIRUBIN 0.6 mg/dL (0.2-1.2)
== END ==
LOC: LAB 11:26
PROVIDERS: Nurse Practitioner
DX: E11.9 Type 2 diabetes mellitus without complications (principal)

== ENCOUNTER → 2023-09-05 | Outpatient (CLI) | payer MEDICARE | LOC: LAB 14:45 | DX: E11.9 Type 2 diabetes mellitus without complications (principal) ==

== ENCOUNTER → 2024-02-28 | Outpatient (CLI) | payer MEDICARE | LOC: LAB 09:26 | DX: E11.9 Type 2 diabetes mellitus without complications (principal) ==

== ENCOUNTER → 2024-04-06 | Outpatient (CLI) | payer MEDICARE ==
[2024-04-06 08:57] LABS: CALCIUM 9.5 mg/dL (8.3-10.5)
== END ==
LOC: LAB 08:31
PROVIDERS: Internal Medicine Nephrology
DX: N18.2 Chronic kidney disease, stage 2 (mild) (principal)

== ENCOUNTER → 2024-05-30 | Outpatient (CLI) | payer MEDICARE ==
[2024-05-30 12:31] LABS: ALBUMIN 3.9 g/dL (3.4-4.8); BASO # 0.08 K/mm3 (0.02-0.10); EOS % 5.9 % (0.0-4.0); HEMATOCRIT 45.3 % (42.0-52.0); HEMOGLOBIN 14.3 g/dL (13.5-18.0); LYMPH# 2.65 K/mm3 (1.50-4.00); MEAN CELL VOLUME 94 fl (78-100); MEAN CORPUSCULAR HEMOGLOBIN 30 pg (27-31); MEAN CORPUSCULAR HGB CONC 32 g/dL (33-37); MEAN PLATELET VOLUME 9.9 fl (7.4-10.4); MONO # 0.99 K/mm3 (0.20-0.80); NEU # 5.87 K/mm3 (1.40-6.50); PLATELET COUNT 237 K/mm3 (130-400); RED BLOOD COUNT 4.82 M/mm3 (4.20-5.60); WHITE BLOOD COUNT 10.2 K/mm3 (4.8-10.8)
[2024-05-30 12:33] LABS: CALCIUM 9.6 mg/dL (8.3-10.5)
[2024-05-30 12:36] LABS: TOTAL BILIRUBIN 0.6 mg/dL (0.2-1.2)
== END ==
LOC: LAB 12:13
PROVIDERS: Family Medicine
DX: E11.9 Type 2 diabetes mellitus without complications (principal); I10 Essential (primary) hypertension